=== PATIENT | male | born 1965 | race Caucasian/White ===

== ENCOUNTER 2020-01-08 15:06 | Outpatient (CLI) | payer OTHER | END 2020-01-08 15:07 | disposition home or self-care (01) | LOC: COV 15:06 | PROVIDERS: ATTEND Family Medicine | DX: R05 Cough (principal); R06.02 Shortness of breath; R06.2 Wheezing; J02.9 Acute pharyngitis, unspecified; R19.7 Diarrhea, unspecified; R09.81 Nasal congestion; J34.89 Other specified disorders of nose and nasal sinuses; R11.2 Nausea with vomiting, unspecified; Z20.828 Contact with and (suspected) exposure to other viral communicable diseases ==